=== PATIENT | male | born 2000 | race Caucasian/White ===

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

== ENCOUNTER → 2020-02-02 16:24 | Outpatient (CLI) | payer OTHER, SELFPAY ==
--- NOTE | 2020-02-02 16:29 | RAD_ITS ---
STUDY: X-RAY - ABDOMEN/PELVIS REASON FOR EXAM: Male, 19 years old. constipation, mucousy stool TECHNIQUE: KUB COMPARISON: None. FINDINGS: Normal visualized lung bases. There is a moderate colonic fecal load.. There is no demonstrated free abdominal air. The visualized liver, spleen and kidneys are grossly normal in size and morphology. Normal soft tissue structures. Normal visualized osseous structures. RAD/Abdomen Single View IMPRESSION: Moderate colonic fecal lobe suspicious for partial fecal impaction Electronically Signed: Dat Vu, at 16:45 EDT Tel , Service support ,
== END ==
PROVIDERS: PCP Pediatrics; Referring Provider Pediatrics; Visit Provider Pediatrics
DX: K59.00 Constipation, unspecified (principal)
CPT/HCPCS: 74018

== ENCOUNTER → 2020-04-01 14:28 | Outpatient (CLI) | payer OTHER, SELFPAY ==
--- NOTE | 2020-04-01 14:31 | RAD_ITS ---
STUDY: X-RAY - ABDOMEN/PELVIS REASON FOR EXAM: Male, 19 years old. Abdominal pain. TECHNIQUE: Single AP view of the abdomen / pelvis. COMPARISON: None. FINDINGS: Normal visualized lung bases. There is an unremarkable bowel gas pattern. There is no demonstrated free abdominal air. The visualized liver, spleen and kidneys are grossly normal in size and morphology. Normal soft tissue structures. Normal visualized osseous structures. RAD/Abdomen Single View IMPRESSION: Normal x-ray examination of the abdomen and pelvis. Electronically Signed: Andre Moran, at 15:07 EDT , Service support ,
== END ==
PROVIDERS: PCP Pediatrics; Referring Provider Nurse Practitioner Pediatrics; Visit Provider Nurse Practitioner Pediatrics
DX: K59.09 Other constipation (principal)
CPT/HCPCS: 74018

== ENCOUNTER 2020-06-21 18:45 | Emergency (ER) | payer OTHER, SELFPAY ==
[2020-06-21 18:46] VITALS: BP 144/89; PULSE 84; RESP 16; TEMP 37.6; O2SAT 99; BMI 21.5
--- NOTE | 2020-06-21 19:06 | EKG12_ITS ---
Test Reason : CP Blood Pressure : / mmHG Vent. Rate : 065 BPM Atrial Rate : 065 BPM P-R Int : 150 ms QRS Dur : 092 ms QT Int : 364 ms P-R-T Axes : 072 079 048 degrees QTc Int : 378 ms Normal sinus rhythm Normal ECG Confirmed by UZIEL HERNANDEZ, CINDY ([id number]), assistant production editor JULIEN OLGUIN ([id number]) on 06/24/2020 1:28:23 PM Referred By: ROSITA Confirmed By:RAMIREZ TRIPLETT MD
--- NOTE | 2020-06-21 19:06 | ED.DCSUM_ITS ---
History of Present Illness Chief Complaint: Chest Other Informant: Patient, Family Onset: Weeks - 3 to 4 weeks Current Severity: Mild Maximum Severity: Moderate Narrative: Patient presents with a 3 to 4-week history of what started out as intermittent left lower rib pain. Over the past 3 or 4 days pain is now been constant but he will occasionally get sharp intermittent episodes. Sitting at rest makes the pain worse. He did report a fall onto his left side 2 months ago while playing basketball but had no pain for a month following this incident. He will occasionally feel short of breath. He denies cough, fever, or chills. No significant family history of blood clots. Past Medical History - Allergies and Home Meds Allergies/Adverse Reactions: Allergies amoxicillin Allergy (Verified 06/21/20 18:46) Rash walnut Allergy (Verified 06/21/20 18:46) Swelling Primary Care Physician: Vu Sheffield MD [Primary Care Provider] - Past Medical History: None Lives: With Family Smoking Status: Never smoker Review of Systems General: Denies: Chills, Fever Eyes: Denies: Visual changes - bilaterally ENT: Denies: Bilateral ear pain Cardiovascular: Reports: Chest pain Respiratory: Reports: Dyspnea. Denies: Cough Gastrointestinal: Denies: Abdominal pain, Nausea, Vomiting, Diarrhea Genitourinary: Denies: Dysuria Musculoskeletal: Denies: Extremity Pain Skin: Denies: Rash Neurological: Denies: Headache Hematologic: Denies: Easy bruising, Easy bleeding Allergy: Denies: Uticaria Physical Exam Vital Signs/Narrative: Vital Signs Temp Pulse Resp BP Pulse Ox 06/21/20 18:46 99.7 F H 84 16 144/89 H 99 Inital Vital Signs reviewed: Yes General: Well nourished, Well developed Head: Normocephalic ENT: Moist mucous membranes Neck: Supple Cardiovascular: Regular rate, Regular rhythm Respiratory: No distress, CTA bilaterally, Chest tenderness - Mild left lower rib tenderness. No crepitus. Abdomen: Soft, Nontender Extremities: Nontender Skin: Normal color Neurological: Alert, Oriented x3 Psychological: Normal affect Diagnostic/Tx/Re-eval Impressions Chest X-Ray 06/21/20 19:50 IMPRESSION: Normal x-ray examination of the chest. Electronically Signed: Giulia Jones MD at 20:12 EDT Tel , Service support , 06/21/20 19:50 Chest PA and Lateral [RAD] Stat Laboratory Results 06/21/20 06/21/20 06/21/20 19:20 19:20 19:20 WBC 9.6 RBC 4.69 Hgb 13.7 Hct 42.0 MCV 89.6 MCH 29.2 MCHC 32.6 RDW Std Deviation 38.9 RDW Coeff of Dilcia 11.9 Plt Count 306 MPV 10.3 Immature Gran % (Auto) 0.200 Neut % (Auto) 56.0 Lymph % (Auto) 34.2 Angelina % (Auto) 7.5 Eos % (Auto) 1.8 Baso % (Auto) 0.3 Absolute Neuts (auto) 5.4 Absolute Lymphs (auto) 3.29 Nucleated RBC % 0 D-Dimer Quant (PE/DVT) < 0.27 L Sodium 142 Potassium 3.8 Chloride 108 H Carbon Dioxide 30.0 Anion Gap 4 L BUN 12 Creatinine 0.87 Estim Creat Clear Calc 130.34 Est GFR (MDRD) Af Amer 142 Est GFR (MDRD) Non-Af 118 BUN/Creatinine Ratio 13.7 Glucose 102 Calcium 9.8 Troponin I < 0.015 - EKG Initial EKG Interpretation: Sinus Rhythm - Sinus at 65 with no acute ischemia. - Medical Decision Making Test results are discussed with patient and mother at bedside. D-dimer is normal. Chest x-ray is clear. Patient may have degree of costochondritis causing his symptoms. He will be treated with a steroid burst. ED Disposition - Plan for ED Patient: Disposition: Home or Assisted Living Diagnosis: Costochondritis Instructions: ED CHEST PAIN [place] Prescriptions: Prednisone [Deltasone] 40 mg PO DAILY #10 tab Transmission Status: Pending to [facility] Referrals: Vu Sheffield MD [Primary Care Provider] - 1 Week if not improving
--- NOTE | 2020-06-21 19:50 | RAD_ITS ---
STUDY: X-RAY CHEST REASON FOR EXAM: Male, 19 years old. INTERMITTENT LEFT LOWER RIB PAIN X 3 WEEKS. CONSTANT PAIN IN SAME AREA X 2 DAYS. PT STATES WHEN THIS OCCURS HE GETS TUNNEL VISION AND FEELS LIKE HE IS GOING TO PASS OUT. TECHNIQUE: PA and lateral views of the chest. COMPARISON: 12/24/2013. FINDINGS: The lungs are clear and expanded. There is no demonstrated pleural abnormality. Normal size heart. Normal mediastinum and fer. Normal visualized pulmonary arteries. Normal visualized aortic arch and descending thoracic aorta. Normal visualized thoracic spine. Normal visualized ribs, clavicles, and shoulders. There is no demonstrated abnormality of the visualized soft tissue structures of the upper abdomen. RAD/Chest PA and Lateral IMPRESSION: Normal x-ray examination of the chest. Electronically Signed: Giulia Jones MD at 20:12 EDT Tel , Service support ,
[2020-06-21 20:14] LABS: Absolute Lymphocyte Count 3.29 X10^3/uL (0.83-4.51); Absolute Neutrophil Count 5.4 X10^3/uL (2.0-7.7); Basophil# 0.03 X10^3/uL; Basophil% 0.3 % (0-1); Eosinophil# 0.17 X10^3/uL; Eosinophils% 1.8 % (0-5); Hemoglobin 13.7 g/dL (13.0-16.5); Lymphocyte # 3.29 X10^3/ul (4.0); Lymphocyte % 34.2 % (19-41); Mean Corp Hgb Conc 32.6 g/dL (32-36); Mean Corpuscular Hgb 29.2 pg (27.0-32.0); Mean Corpuscular Volume 89.6 fL (80-94); Mean Platelet Vol. 10.3 fl (6.2-12.0); Monocyte# 0.72 X10^3/uL; Monocyte% 7.5 % (0-10); NRBC Flagged by Analyzer 0 % (0-5); Neutrophil # 5.39 X10^3/uL (2.7-7.7); Platelet Count 306 K/mm3 (150-450); RBC Distribution Width CV 11.9 % (11.6-14.6); RBC Distribution Width SD 38.9 fl (35.1-43.9); Red Blood Count 4.69 M/mm3 (4.6-6.2); White Blood Count 9.6 K/mm3 (4.4-11.0)
[2020-06-21 20:25] LABS: D-Dimer Quantitative (DVT/PE) < 0.27 FEU/ug/m (0.27-0.49)
[2020-06-21 20:35] LABS: Anion Gap 4 (5-15); BUN 12 mg/dL (7-18); BUN/Creat Ratio 13.7 RATIO (10-20); Calcium,Total 9.8 mg/dL (8.5-10.1); Chloride 108 mmol/L (98-107); Creatinine, Serum 0.87 mg/dL (0.70-1.30); EST Glomerular Filtration Rate 118 mL/min (>60); Est Glom Filt Rate - Afr Amer 142 mL/min (>60); Estimated Creatinine Clearance 130.34 ml/min; Glucose 102 mg/dL (74-106); Potassium 3.8 mmol/L (3.5-5.1); Sodium Level 142 mmol/L (136-145)
[2020-06-21 20:43] VITALS: BP 144/87; PULSE 72; RESP 12; O2SAT 97
[2020-06-21] MEDS: predniSONE 20 MG Tablet 40 MG PO (20:48)
== END 2020-06-21 20:51 | disposition home or self-care (01) ==
PROVIDERS: Emergency Provider Emergency Medicine; PCP Family Medicine
DX: M94.0 Chondrocostal junction syndrome [Tietze] (principal); Z79.899 Other long term (current) drug therapy
CPT/HCPCS: 71046; 80048; 84484; 85025; 85379; 93005; 99285; A4216

== ENCOUNTER → 2022-06-07 | Outpatient (CLI) | payer OTHER, SELFPAY ==
[2022-06-07 14:40] LABS: Absolute Lymphocyte Count 3.15 X10^3/uL (0.83-4.51); Absolute Neutrophil Count 9.7 X10^3/uL (2.0-7.7); Basophil# 0.02 X10^3/uL; Basophil% 0.1 % (0-1); Eosinophil# 0.04 X10^3/uL; Eosinophils% 0.3 % (0-5); Hematocrit 44.5 % (40-54); Hemoglobin 14.9 g/dL (13.0-16.5); Lymphocyte # 3.15 X10^3/ul (0.83-4.51); Lymphocyte % 22.4 % (19-41); Mean Corp Hgb Conc 33.5 g/dL (32-36); Mean Corpuscular Hgb 29.1 pg (27.0-32.0); Mean Corpuscular Volume 86.9 fL (80-94); Mean Platelet Vol. 9.8 fl (6.2-12.0); Monocyte# 1.13 X10^3/uL; NRBC Flagged by Analyzer 0 % (0-5); Neutrophil # 9.66 X10^3/uL (2.7-7.7); Neutrophil % 68.8 % (47-70); Platelet Count 358 K/mm3 (150-450); RBC Distribution Width CV 13.3 % (11.6-14.6); RBC Distribution Width SD 42.6 fl (35.1-43.9); Red Blood Count 5.12 M/mm3 (4.6-6.2); White Blood Count 14.1 K/mm3 (4.4-11.0)
[2022-06-07 14:52] LABS: Erythrocyte Sedimentation Rate < 1 mm/hr (0-20)
[2022-06-07 15:18] LABS: ALB/GLOB Ratio 1.5 RATIO (0.9-2.4); AST(SGOT) 19 U/L (15-37); Alanine Aminotransfer ALT/SGPT 26 U/L (16-61); Albumin, Serum 4.2 g/dL (3.2-5.0); Alkaline Phosphatase 54 U/L (45-117); Anion Gap 6 (5-15); BUN 18 mg/dL (7-18); BUN/Creat Ratio 17.6 RATIO (10-20); Calcium,Total 9.3 mg/dL (8.5-10.1); Chloride 105 mmol/L (98-107); Creatinine, Serum 1.02 mg/dL (0.70-1.30); EST Glomerular Filtration Rate 97 mL/min (>60); Est Glom Filt Rate - Afr Amer 117 mL/min (>60); Globulin 2.8 g/dL (2.2-4.2); Glucose 98 mg/dL (74-106); Potassium 3.6 mmol/L (3.5-5.1); Sodium Level 140 mmol/L (136-145)
[2022-06-07 15:51] LABS: HIV - WCH Non-Reactive (Nonreactive); Hepatitis C Antibody Non-Reactive (Nonreactive)
== END | disposition home or self-care (01) ==
LOC: LAB 13:45
PROVIDERS: Referring Provider Internal Medicine Gastroenterology; Visit Provider Internal Medicine Gastroenterology
DX: Z01.818 Encounter for other preprocedural examination (principal); K51.90 Ulcerative colitis, unspecified, without complications
CPT/HCPCS: 36415; 80053; 85025; 85652; 86703; 86803

== ENCOUNTER → 2022-11-21 | Outpatient (CLI) | payer OTHER, SELFPAY ==
[2022-11-21 11:19] LABS: Erythrocyte Sedimentation Rate 2 mm/hr (0-20)
[2022-11-21 11:20] LABS: Absolute Lymphocyte Count 4.94 X10^3/uL (0.83-4.51); Absolute Neutrophil Count 9.1 X10^3/uL (2.0-7.7); Basophil# 0.04 X10^3/uL; Basophil% 0.3 % (0-1); Eosinophil# 0.08 X10^3/uL; Eosinophils% 0.5 % (0-5); Hematocrit 45.7 % (40-54); Hemoglobin 14.4 g/dL (13.0-16.5); Lymphocyte # 4.94 X10^3/ul (0.83-4.51); Lymphocyte % 31.8 % (19-41); Mean Corp Hgb Conc 31.5 g/dL (32-36); Mean Corpuscular Hgb 28.2 pg (27.0-32.0); Mean Corpuscular Volume 89.6 fL (80-94); Mean Platelet Vol. 9.6 fl (6.2-12.0); Monocyte# 1.28 X10^3/uL; Monocyte% 8.2 % (0-10); NRBC Flagged by Analyzer 0 % (0-5); Neutrophil # 9.12 X10^3/uL (2.7-7.7); Neutrophil % 58.8 % (47-70); Platelet Count 347 K/mm3 (150-450); RBC Distribution Width CV 12.6 % (11.6-14.6); RBC Distribution Width SD 41.7 fl (35.1-43.9); White Blood Count 15.5 K/mm3 (4.4-11.0)
[2022-11-21 11:52] LABS: ALB/GLOB Ratio 1.2 RATIO (0.9-2.4); AST(SGOT) 31 U/L (15-37); Alanine Aminotransfer ALT/SGPT 35 U/L (16-61); Albumin, Serum 4.1 g/dL (3.2-5.0); Alkaline Phosphatase 53 U/L (45-117); Anion Gap 5 (5-15); BUN 15 mg/dL (7-18); BUN/Creat Ratio 17.8 RATIO (10-20); CRP < 2.90 mg/L (0.0-3.0); Calcium,Total 9.7 mg/dL (8.5-10.1); Chloride 107 mmol/L (98-107); Creatinine, Serum 0.84 mg/dL (0.70-1.30); EST Glomerular Filtration Rate 120 mL/min (>60); Est Glom Filt Rate - Afr Amer 145 mL/min (>60); Globulin 3.5 g/dL (2.2-4.2); Glucose 92 mg/dL (74-106); LDH 163 U/L (87-241); Potassium 3.4 mmol/L (3.5-5.1); Protein, Total 7.6 g/dL (6.4-8.2); Sodium Level 142 mmol/L (136-145)
[2022-11-22 14:09] LABS: Anti-Centromere B Ab <0.2 AI (0.0-0.9); Anti-Chromatin <0.2 AI (0.0-0.9); Anti-Jo <0.2 AI (0.0-0.9); Anti-Scleroderma-70 AB <0.2 AI (0.0-0.9); Endomysial Antibody IgA Negative (Negative); RNP Ab <0.2 AI (0.0-0.9); SJOGREN'S Anti-SS-A test < 0.2 AI (0.0-0.9); SJOGREN'S Anti-SS-B test < 0.2 AI (0.0-0.9); Smith Ab <0.2 AI (0.0-0.9)
[2022-11-22 17:24] LABS: Anti-dsDNA Ab <1 IU/mL (0-9); Immunoglobulin A 145 mg/dL (90-386); t-Transglutaminase IgA <2 U/mL (0-3)
[2022-11-27 19:07] LABS: Albumin 4.1 g/dL (2.9-4.4); Alpha-1-Globulins 0.2 g/dL (0.0-0.4); Alpha-2-Globulins 0.7 g/dL (0.4-1.0); HEPATITIS B SURFACE AG Negative (Negative); Hep C Antibodies 0.1 s/co ratio (0.0-0.9); Hepatitis A IgM Antibody Negative (Negative); Hepatitis B Core AB IgM Negative (Negative); Immunoglobulin A 147 mg/dL (90-386); Immunoglobulin E 13 IU/mL (6-495); Immunoglobulin G 1061 mg/dL (603-1613); Immunoglobulin M 82 mg/dL (20-172); PROEL- TOTAL PROTEIN 6.8 g/dL (6.0-8.5); QNTFERON TB Mitogen Value > 10.00 IU/mL (.); QNTFERON TB Nil Value 0.19 IU/mL (.); QNTFERON TB1+ Ag Value 0.11 IU/mL (.); QNTFERON TB2+ Ag Value 0.22 IU/mL (.)
[2022-11-27 20:24] LABS: Perinuclear Ab (P-ANCA) <1:20 titer (Neg:<1:20); QNTIFERON TB Positive Criteria Negative (Negative)
== END | disposition home or self-care (01) ==
PROVIDERS: Referring Provider Internal Medicine Gastroenterology; Visit Provider Internal Medicine Gastroenterology
DX: K52.9 Noninfective gastroenteritis and colitis, unspecified (principal)
CPT/HCPCS: 36415; 80053; 80074; 82784; 82785; 83516; 83615; 84165; 85025; 85652; 86140; 86225; 86235; 86255; 86256; 86334; 86480

== ENCOUNTER → 2023-01-03 | Outpatient (CLI) | payer OTHER, SELFPAY ==
[2023-01-03 12:30] VITALS: BP 145/80; PULSE 82; RESP 16; TEMP 36.7; O2SAT 96; BMI 21.5
[2023-01-03 14:21] VITALS: BP 129/56; PULSE 76; RESP 14
== END | disposition home or self-care (01) ==
LOC: MEDOUTP 11:54
PROVIDERS: Referring Provider Internal Medicine Gastroenterology; Visit Provider Internal Medicine Gastroenterology
DX: K51.90 Ulcerative colitis, unspecified, without complications (principal)
CPT/HCPCS: 96365; 96366; J7050; A4216; J3358

== ENCOUNTER → 2023-08-15 | Outpatient (CLI) | payer OTHER, SELFPAY ==
[2023-08-15 15:31] LABS: Erythrocyte Sedimentation Rate < 1 mm/hr (0-20)
[2023-08-15 16:06] LABS: CRP < 2.90 mg/L (0.0-3.0)
== END | disposition home or self-care (01) ==
PROVIDERS: Visit Provider Internal Medicine Gastroenterology
DX: K51.90 Ulcerative colitis, unspecified, without complications (principal)
CPT/HCPCS: 36415; 85652; 86140

== ENCOUNTER → 2023-10-10 | Outpatient (CLI) | payer OTHER, SELFPAY ==
--- NOTE | 2023-10-10 09:49 | US_ITS ---
INDICATION: painful lump left inferior scrotum EXAMINATION: US Scrotum (Contents) TECHNIQUE: Realtime ultrasound of the testicles was performed with grayscale, Color Doppler and spectral Doppler analysis. COMPARISON: None. FINDINGS: RIGHT: TESTIS: Measures 5.1 x 2.4 x 2.9 cm. Normal in size and echotexture, without focal lesion. COLOR DOPPLER: Normal arterial flow present in the testicle with monophasic waveforms. EPIDIDYMIS: Normal in size and echotexture, without focal lesion. [Normal color Doppler flow pattern in the epididymis. HYDROCELE: Moderate. VARICOCELE: None. LEFT: TESTIS: Measures 4.8 x 2.3 x 3 cm. Normal in size and echotexture, without focal lesion. COLOR DOPPLER: Normal arterial flow present in the testicle with monophasic waveforms. EPIDIDYMIS: Normal in size and echotexture, without focal lesion. [Normal color Doppler flow pattern in the epididymis. HYDROCELE: Small. VARICOCELE: None. US/Testicular with Arterial Flow IMPRESSION: Small left and moderate right complex hydroceles. Otherwise normal bilateral testes and epididymides. Electronically Signed: Arnaldo Hanson MD at 14:55 EST ,
== END | disposition home or self-care (01) ==
LOC: US 09:48
PROVIDERS: PCP Family Medicine; Referring Provider Family Medicine; Visit Provider Family Medicine
DX: N50.89 Other specified disorders of the male genital organs (principal)
CPT/HCPCS: 76870; 93976

== ENCOUNTER → 2024-05-15 | Outpatient (CLI) | payer OTHER, SELFPAY ==
[2024-05-15 10:58] LABS: CRP < 2.90 mg/L (0.0-3.0)
[2024-05-15 11:04] LABS: Erythrocyte Sedimentation Rate 2 mm/hr (0-20)
== END | disposition home or self-care (01) ==
PROVIDERS: PCP Family Medicine; Visit Provider Internal Medicine Gastroenterology
DX: K51.90 Ulcerative colitis, unspecified, without complications (principal)
CPT/HCPCS: 36415; 85652; 86140

== ENCOUNTER 2024-09-21 07:21 | Day surgery (SDC) | payer OTHER, SELFPAY ==
[2024-09-21] VITALS (9 sets, daily range): BP systolic 90–135; BP diastolic 50–90; PULSE 51–86; RESP 16–18; TEMP 36.2–36.7; O2SAT 96–100; BMI 19.5
--- NOTE | 2024-09-21 | COLBX_PTH ---
PATIENT: BOB TEJEDA LOC: EN U#:[id number] AGE/SX: 23/M ROOM: RE09/21/[address]: Dr. Brain Mcelroy DO : 2000 BED: DIS: 09/21/2024 SPEC #: [id number] RECD: 09/21/24 10:06 STATUS: LEELEE AJITH #: [id number] ANCA: 09/21/24 00:[address]: Brain Mcelroy DEPT: SURGICAL PATHOLOGY RECD BY: Bayron Hodges ENTERED: 09/21/24 10:07 SP TYPE: COLON BX AKBAR DR: Dr. Vu Dinh MD Tissues: A - Cecum, NOS B - Ileum, NOS C - Right colon D - Transverse colon E - Left colon F - Rectum, NOS Procedures: Surgery Specimen Level IV HEADER OPERATION: Colonoscopy with biopsy PRE-OP DIAGNOSIS: Ulcerative colitis TISSUE SUBMITTED: A- Cecum biopsy, B- Terminal ileum biopsy, C- Right side colon biopsy, DD- Transverse colon biopsy, E- Left side colon biopsy, F- Rectum biopsy MICROSCOPIC DIAGNOSIS A. Cecum, biopsy: Colonic mucosa with focal adenomatous change. See comment. B. Terminal ileum, biopsy: No pathologic change.C. Right side colon, biopsy: Focal mucosal denudation. No evidence of colitis. D. Transverse colon, biopsy: No significant pathologic change. See comment. E. Left side colon, biopsy: Focal acute colitis. See comment. F. Rectum, biopsy: No significant pathologic change. No evidence of colitis. See comment. 09/22/2024 COMMENT A. Eosinophils are mildly increased in the mucosa. The significance of this is unclear. D. The eosinophils are increased in the mucosa. The significance of this is unclear. E. Focal cryptitis with associated glandular distortion is present. Eosinophils are increased in the lamina propria. No fissuring ulcers or transmural lymphoid aggregates are seen. Clinical correlation is suggested. F. The eosinophils are increased in the mucosa MICROSCOPIC DESCRIPTION Slides are reviewed. GROSS DESCRIPTION A. Received in fixative is one container labeled with the patient's name and designated Cecum biopsy. The specimen consists of multiple irregular fragments of light anaya soft tissue that in aggregate measure 1.5 x 0.3 x 0.1 cm. The specimen is totally submitted in one cassette. B. Received in fixative is one container labeled with the patient's name and designated Terminal ileum biopsy. The specimen consists of two irregular fragments of light anaya soft tissue that in aggregate measure 1.0 x 0.2 x 0.1 cm. The specimen is totally submitted in one cassette. C. Received in fixative is one container labeled with the patient's name and designated Right side colon biopsy. The specimen consists of two irregular fragments of light anaya soft tissue that in aggregate measure 0.6 x 0.5 x 0.1 cm. The specimen is totally submitted in one cassette. D. Received in fixative is one container labeled with the patient's name and designated Transverse colon biopsy. The specimen consists of two irregular fragments of light anaya soft tissue that in aggregate measure 0.8 x 0.7 x 0.1 cm. The specimen is totally submitted in one cassette. E. Received in fixative is one container labeled with the patient's name and designated Left side colon biopsy. The specimen consists of two irregular fragments of light anaya soft tissue that in aggregate measure 0.6 x 0.5 x 0.1 cm. The specimen is totally submitted in one cassette. F. Received in fixative is one container labeled with the patient's name and designated Rectum biopsy. The specimen consists of multiple irregular fragments of light anaya soft tissue that in aggregate measure 1.5 x 0.5 x 0.1 cm. The specimen is totally submitted in one cassette. 09/21/2024 TC:2 CPT:66481g2
--- NOTE | 2024-09-21 07:26 | PRE.ANES_ITS ---
ASA Classification* ASA Classification ASA Classification: 2 Assessment & Plan Anesthesia* Anesthesia Assessment Anesthesia Assessment: Discussed sedation and/or anesthesia options, risks, benefits, and alternatives with patient/parents/legal guardian/POA. Questions invited. The patient/parents/legal guardian/POA seems to understand and agrees to proceed with anesthesia plan. Reviewed the physical assessment, medical history, allergy history and patient home medications list prior to surgery/procedure/anesthetic and documented any changes. Performed airway and anesthesia risk assessments. Anesthesia Type Anesthesia Type: MAC Anesthesia Focused Assessment* Airway Assessment Mouth opens: >3 cm Mallampati Score: II Focused Labs Anesthesia Preop lab: CBC WBC 15.5 K/mm3 (4.4-11.0) H 11/21/22 10:43 RBC 5.10 M/mm3 (4.6-6.2) 11/21/22 10:43 Hgb 14.4 g/dL (13.0-16.5) 11/21/22 10:43 Hct 45.7 % (40-54) 11/21/22 10:43 Plt Count 347 K/mm3 (150-450) 11/21/22 10:43 CHEMISTRY Potassium 3.4 mmol/L (3.5-5.1) L 11/21/22 10:43 Sodium 142 mmol/L (136-145) 11/21/22 10:43 BUN 15 mg/dL (7-18) 11/21/22 10:43 Creatinine 0.84 mg/dL (0.70-1.30) 11/21/22 10:43 Glucose 92 mg/dL (74-106) 11/21/22 10:43 TSH 1.34 uIU/mL (0.358-3.74) 07/29/15 12:28 COAG Pre-Assessment Diagnosis/Proposed Procedure Planned Operative Procedure(s): cscope Anesthesia History Anesthesia History - oracle database administrator: Anesthesia History - oracle database administrator Hx Hospitalization No 09/16/24 15:02 Any Problems With Anesthesia Yes: ponv with most recent 09/16/24 15:02 cscope about 2 years ago Cholinesterase deficiency No 09/16/24 15:02 You/Your Family Experience No 09/16/24 15:02 fever (hyperthermia) with Relationship Recent Exposure to Contagious Disease Does patient have nerve No 09/16/24 15:02 stimulator Patient instructed to have device shut off --Does patient have Pacemaker or ICD? When Was Last Pacemaker Check QUESTION #4 FULL TEXT: You/Your Family Experience fever (hyperthermia) with Anesthesia Last Oral Intake Last Oral intake: Last Oral Intake NPO since Meds taken in AM with sips of water? Meds patient instructed to take am of surgery PONV PONV - oracle database administrator: PONV - oracle database administrator Female No 09/16/24 15:02 HX of Motion Sickness Yes 09/16/24 15:02 HX of N/V After Surgery Yes 09/16/24 15:02 Non-Smoker Yes 09/16/24 15:02 Duration of Surgery greater No 09/16/24 15:02 than 60 minutes Number of Risk Factors 3 09/16/24 15:02 PONV Score Moderate Risk 09/16/24 15:02 Height & Weight Height & Weight: Anesthesia: Height & Weight Height 5 ft 10 in 07/28/24 06:53 Respiratory Assessment Respiratory Assessment - oracle database administrator: Respiratory Tract Infection Hx - oracle database administrator Hx Respiratory Tract Infection No 09/16/24 15:02 STOP Sleep Apnea STOP Sleep Apnea - oracle database administrator: STOP Sleep Apnea - oracle database administrator Hx Hypertension No 09/16/24 15:02 Hx Sleep Apnea No 09/16/24 15:02 CPAP BIPAP Do you snore loudly (louder No 09/16/24 15:02 than talking or can be heard Do you often feel tired/ No 09/16/24 15:02 fatigued/ sleepy during daytime? Has anyone observed you stop No 09/16/24 15:02 breathing during sleep? STOP Results Negative 09/16/24 15:02 QUESTION #5 FULL TEXT : Do you snore loudly (louder than talking or can be heard through closed doors)? 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 Specify any problems Hx of Preganancy in last 3 N/A 09/16/24 15:02 Months Nurse Filling Out Transfusion NBUCHER 09/16/24 15:02 & Questions: Date: 09/16/24 09/16/24 15:02 Time: 15:04 09/16/24 15:02 Patient unable to answer at this time (ie. confused, unrespo /Reproduction History /Reproductive History - oracle database administrator: /Reproductive Hx- oracle database administrator Hx Now No 09/16/24 15:02 Gestational Age (in weeks): EDC: Hx Hx Para Hx Section SAB No 09/16/24 15:02 PFSH Medical History Wears contact lenses History of Clostridium difficile infection Anxiety Marijuana use Migraine headache History of GI bleed History of IBS Non-smoker Home Medications ?Medication ?Instructions ?Recorded ?Last Taken ?Type Hydroxyzine Pamoate 1 tab PO DAILY PRN anxiety 06/21/20 Unknown History albuterol sulfate 90 mcg/actuation 2 puff inhalation Q4-6H PRN 07/16/24 Unknown Rx aerosol inhaler shortness of breath or wheezing #8.5 grams ustekinumab 90 mg/mL subcutaneous 90 mg subcut Q4W #1 mL 08/19/24 Unknown Rx syringe (Stelara) budesonide 3 mg 3 mg PO DAILY 09/16/24 Unknown History capsule,delayed,extended release Allergy/AdvReac Type Severity Reaction Status Date / Time amoxicillin Allergy Rash Verified 09/16/24 15:00 walnut Allergy Swelling Verified 09/16/24 15:00 Surgical History History of colonoscopy Social History Smoking Status: Never smoker Review of Systems (Anesthesia) ROS Narrative System reviewed and no additional complaints, except as documented.
--- NOTE | 2024-09-21 07:42 | HP.PCM_ITS ---
History and Physical Date of Admission: 09/21/24 DEEP TEJEDA, is a 23 M who presents to the office today for follow up. PMH costochondritis, migraine, anxiety. Dr. [facility] establishment 2019. Mesalamine enema, balsalazide attempted and failed ? Colonoscopy 06.03.20. Moderate active chronic colitis with focal fibrinopurulent debris with adjacent ulcer. Op report unavailable. [facility] 2020 who saw him for UC with use of prednisone. Biochemical workup Hep B, TB, Vit B12, ferritin, folic acid, CMP, CRP, CBC (hgb L13.2), Vit D25 L19 Colonoscopy 09.20.21 noting diffuse erosion, erythema, friability, granularity and ulceration in rectum, sigmoid, descending and distal transverse colons. Pathology noting colitis of right, left colons and rectum. Entyvio 09.20.2021 Q8W and prednisone 40mg started which resolved flare. Attempted prednisone taper down to 15mg in when he had a flare which may have additional contributing factor of poor diet. 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 Does not that he has increased symptoms following colonoscopies, but not necessarily a flare of UC. *[facility] established 11.21.22 with history as noted above. IBD ? biochemical workup and start of Stelara. OV 6 reports that he pays close attention to his diet and he has intermittent loose stools, but currently stooling is normal with minimal abdominal pain. Notes rash on his lower torso. OV 07.26.23 doing well since LV with some symptoms at end of May; doing well with Stelara. Contact, 09.09.23 to discuss results and arrange colonoscopy prior to making any medication changes ? Colonoscopy 12.06.23 cancelled Contact 12.31.23 reporting budesonide reduction to 6mg 12.30.23 colonoscopy cancelled as he was worried about the prep causing a flare of IBD and he has been doing very well lately; encouraged to get one completed sometime in the next year. OV 01.23.24 pt reports doing well and symptoms are managed with diet and his current medication regimen. OV 07.03.24 pt reports that he is feeling well overall, denies GI symptoms of concern at this time. Pt continues with Budesonide and Stelara. ? ESR/CRP Calp/lact? serum/ab? TB 11.21.22 2/<2.9?? --/--? --/--? WNL? cANCA H1:640? LDH, Hepatitis, BRADLEY comp, celiac, GAME, ITALIA, IBD WNL. Stool not performed. 01.03.23? Stelara infusion 08.15.23 <1/<2.9 ? 3/neg? -- 05.15.24 2 / <2.9 -- /-- 1.7 / neg ROS Const Constitutional: No fatigue, fever(s) or weight change ENT ENT: No difficulty swallowing Gastro GI: Positive for change in bowel habits; No abdominal pain, belching, bloating, change in stool character, coffee ground emesis, constipation, cramping, diarrhea, heartburn, difficulty swallowing, feeling full early, excessive flatus, incontinent of stools, Vomiting blood/hematemesis, Blood in stool, loose stools, Black,tarry stools, nausea/dyspepsia, pain with swallowing, vomiting or other Musc Musculoskeletal: No joint pain Skin Skin: No yellowing of the eye or itchy eyes Psych Psychiatric: Positive for anxiety and No depression Endo Endocrine: No fatigue or weight change Aller/Imm Allergy/Immunologic: No itchy eyes Ceasar/Lymp Hematologic/Lymphatic: No easy bleeding or easy bruising Exam Const General: cooperative and well developed HENMT Head: normal to inspection and atraumatic Face and sinus: normal facial exam Mouth: oral mucosae normal Resp Effort & Inspection: normal respiratory effort and no audible wheezes Cardio Palpation: normal PMI Rate: regular rate Rhythm: regular rhythm GI Inspection: normal to inspection Neuro General: patient alert Psych Appearance: grossly normal Mental Status: mental status grossly normal Assessment and Plan Assessment and Plan (1) Ulcerative colitis: Status: Chronic Plan: He is doing very well regarding his ulcerative colitis on his current Stelara treatment. He did show me a centrally located a rash that seems to travel around dermatome number 12. Is not and raised macular papular rash that I suspect is pityriasis associated with his inflammatory bowel disease. He gets the same rash in his upper arms when he is noticing that he gets a flare. As he titrated down the prednisone to 5 mg he did have a short flare of worsening cramping associated diarrhea but it only lasted about a week. We will check his Stelara levels and his antibody levels to Stelara. We will also switch him to budesonide 9 mg daily to hopefully get him off of prednisone completely. He did go see the eye doctor in he was diagnosed with early cataract. This is secondary to chronic prednisone usage over multiple years. His QuantiFERON gold and hepatitis B labs were negative. He has been having some intermittent cough and mucus formation in his upper airway. He went to urgent care in chest x-ray and examination did not show any signs of infection or asthma. He was given inhaler and a breathing treatment and it did help. He is concerned that he might have underlying asthma. We will refer him to pulmonology. (2) IBD (inflammatory bowel disease): Status: Inactive Plan: He has no extraintestinal manifestations of ulcerative colitis including no skin rashes, liver involvement, pancreatic involvement. He has no side effects from prednisone that he knows of including no osteoporosis, osteopenia, Calhoun's, sleeping difficulties or any hormonal problems. We will get biochemical profile and stool analysis including IBD SGI and he will follow-up in office. Continue Stelara in the near future. His last QuantiFERON gold for tuberculosis was normal back in November. Increase to once a month stelera. I have examined the patient and the H&P has been reviewed. There are no clinical changes since date of exam.
--- NOTE | 2024-09-21 08:39 | OP.CCLET_ITS ---
09/21/2024 Vu Dinh [address] [place] [address] Re : Colonoscopy procedure for [facility] Dear Dr. Dinh This procedure was performed on Saturday, September 21, 2024. My impressions and recommendations are as follows: Impressions : - Moderately active (Monae Score 2) ulcerative colitis, worsened since the last examination. Biopsied. - Stool in the sigmoid colon. Fluid aspiration performed. - Mild inflammation was found in the ileum secondary to ileitis. Biopsied. Recommendations : - Patient has a contact number available for emergencies. The signs and symptoms of potential delayed complications were discussed with the patient. Return to normal activities tomorrow. Written discharge instructions were provided to the patient. - Resume previous diet. - Repeat colonoscopy for surveillance. - Continue present medications. My findings are described in the full procedure note, which is enclosed. If I can be of further assistance, please feel free to contact me at . Sincerely, Brain Mcerloy DO 09/21/2024 8:39:18 AM This report has been signed electronically.
--- NOTE | 2024-09-21 08:39 | OP.COLON_ITS ---
Patient Name: Chano Ordoñez Procedure Date: 09/21/2024 8:13 AM Date of : 2000 Age: 23 Procedure: Colonoscopy Indications: Suspected chronic ulcerative pancolitis Providers: Brain Mcelroy DO Referring MD: Vu Dinh Medicines: Monitored Anesthesia Care Patient Profile: This is a 23 year old male. Refer to note in patient chart for documentation of history and physical. Last Colonoscopy: within the past 3 years. Complications: No immediate complications. Procedure: Pre-Anesthesia Assessment: - Prior to the procedure, a History and Physical was performed, and patient medications and allergies were reviewed. The patient is competent. The risks and benefits of the procedure and the sedation options and risks were discussed with the patient. All questions were answered and informed consent was obtained. Patient identification and proposed procedure were verified by the physician in the pre-procedure area. Mental Status Examination: alert and oriented. Airway Examination: normal oropharyngeal airway and neck mobility. Respiratory Examination: clear to auscultation. CV Examination: normal. Prophylactic Antibiotics: The patient does not require prophylactic antibiotics. Prior Anticoagulants: The patient has taken no anticoagulant or antiplatelet agents except for NSAID medication. ASA Grade Assessment: II - A patient with mild systemic disease. After reviewing the risks and benefits, the patient was deemed in satisfactory condition to undergo the procedure. The anesthesia plan was to use monitored anesthesia care (MAC). Immediately prior to administration of medications, the patient was re-assessed for adequacy to receive sedatives. The heart rate, respiratory rate, oxygen saturations, blood pressure, adequacy of pulmonary ventilation, and response to care were monitored throughout the procedure. The physical status of the patient was re-assessed after the procedure. After I obtained informed consent, the scope was passed under direct vision. Throughout the procedure, the patient's blood pressure, pulse, and oxygen saturations were monitored continuously. The Colonoscope was introduced through the anus and advanced to the terminal ileum. The colonoscopy was performed without difficulty. The patient tolerated the procedure well. The quality of the bowel preparation was adequate. The terminal ileum, ileocecal valve, appendiceal orifice, and rectum were photographed. Scope In: 8:16:06 AM Scope Withdrawal Time 0 hours 11 minutes 31 seconds Scope Out: 8:32:46 AM Total Procedure Duration Time 0 hours 16 minutes 40 seconds Findings: The perianal and digital rectal examinations were normal. Inflammation was found in a continuous and circumferential pattern from the rectum to the cecum. This was graded as Monae Score 2 (moderate, with marked erythema, absent vascular pattern, friability, erosions), and when compared to the previous examination, the findings are worsened. Biopsies were taken with a cold forceps for histology. Verification of patient identification for the specimen was done. Estimated blood loss was minimal. A moderate amount of stool was found in the sigmoid colon, without interference to visualization. Fluid aspiration was performed through the scope suction channel. The amount of fluid collected was 60 mL. Sample(s) were sent for bacterial cultures, Clostridium difficile and ova and parasites. Localized mild inflammation characterized by erythema was found in the terminal ileum. Biopsies were taken with a cold forceps for histology. Verification of patient identification for the specimen was done. Estimated blood loss was minimal. Impression: - Moderately active (Monae Score 2) ulcerative colitis, worsened since the last examination. Biopsied. - Stool in the sigmoid colon. Fluid aspiration performed. - Mild inflammation was found in the ileum secondary to ileitis. Biopsied. Recommendation: - Patient has a contact number available for emergencies. The signs and symptoms of potential delayed complications were discussed with the patient. Return to normal activities tomorrow. Written discharge instructions were provided to the patient. - Resume previous diet. - Repeat colonoscopy for surveillance. - Continue present medications. Procedure Code(s): --- Professional --- 21230, Colonoscopy, flexible; with biopsy, single or multiple CPT copyright 2021 [employer]. All rights reserved. The codes documented in this report are preliminary and upon clinical appeals rn review may be revised to meet current compliance requirements. Brain Mcelroy DO 09/21/2024 8:39:18 AM This report has been signed electronically. Number of Addenda: 0 Note Initiated On: 09/21/2024 8:13 AM
--- NOTE | 2024-09-21 08:40 | PCM.POST.ANE ---
Anesthesia: Postop Eval I Current Vital Signs Temperature: 97.2 F Pulse Rate: 58 Blood Pressure: 92/56 Respiratory Rate: 16 Pulse Ox: 98 Oxygen Delivery Method: Room Air Assessment Airway patent: Yes Spontaneous unlabored respirations: Yes Mental status: Asleep nausea: No Vomiting: No Anesthesia Complication: No Fluid Hydration Crystalloid volume administer (ml): 65 Total IV fluid infused: 65 Progress Note Anesthesia document: Postop Eval 1 completed: Yes
--- NOTE | 2024-09-21 09:19 | PCM.POSTANE2 ---
Anesthesia Postop Eval I Sum Postop Eval Completion status Anesthesia document: Postop Eval 1 completed: Yes Anesthesia Postop Eval I Summary Anesthesia Postop Eval I Summary: Anesthesia Postop Eval I: Assessment Summary Airway patent Yes 09/21/24 08:41 [email or web address] Spontaneous unlabored Yes 09/21/24 08:41 [email or web address] respirations Mental status Asleep 09/21/24 08:41 [email or web address] nausea No 09/21/24 08:41 [email or web address] Vomiting No 09/21/24 08:41 [email or web address] Anesthesia Postop Eval I: Fluid Summary Crystalloid volume administer 65 09/21/24 08:41 [email or web address] (ml) Colloids volume administered ( ml) Blood Product volume administered (ml) Total IV fluid infused 65 09/21/24 08:41 [email or web address] Anesthesia Postop Eval I: Summary Notes Anesthesia Complication No 09/21/24 08:41 [email or web address] Anesthesia Complication Comment: Post-operative progress note Anesthesia: Postop Eval II Evaluation Mental status: Awake Pain Level: 0 nausea: No Vomiting: No
== END 2024-09-21 09:23 | disposition home or self-care (01) ==
LOC: EN 07:23 → AC 07:24
PROVIDERS: PCP Family Medicine; Referring Provider Family Medicine; Visit Provider Internal Medicine Gastroenterology
PROC: 0DJD8ZZ Inspection of Lower Intestinal Tract, Via Natural or Artificial Opening Endoscopic (ICD-10-PCS; CPT 45378; principal; 2024-09-21 07:55)
DX: K51.50 Left sided colitis without complications (principal); R19.7 Diarrhea, unspecified; F41.9 Anxiety disorder, unspecified; Z79.899 Other long term (current) drug therapy
CPT/HCPCS: 45380; 87493; 87506; 88305; A4216; J2405